=== PATIENT | male | born 1950 | race Caucasian/White ===

== ENCOUNTER → 2018-06-14 | Day surgery (SDC) | payer MEDICARE, OTHER ==
[2018-06-12 14:34] LABS: BASOPHILS % 0.4 % (0.0-1.0); EOSINOPHILS # (AUTO) 0.3 (0.0-0.4); EOSINOPHILS % 4.4 % (0.0-6.0); HEMATOCRIT 36.5 % (38.2-49.6); LYMPHOCYTES # (AUTO) 1.8 (1.0-3.2); LYMPHOCYTES % 25.9 % (18.0-39.1); MEAN CORPUSCULAR HEMOGLOBIN 30.8 pg (28-32); MEAN CORPUSCULAR HGB CONC 32.9 g/dL (31-35); MEAN CORPUSCULAR VOLUME 93.8 fL (81-99); MONOCYTES # (AUTO) 0.8 (0.2-0.8); MONOCYTES % 11.1 % (4.4-11.3); NEUTROPHILS % 57.9 % (38.7-80.0); PLATELET COUNT 205 x10e3/uL (140-360); RED BLOOD COUNT 3.89 x10e6/uL (4.3-5.7); RED CELL DISTRIBUTION WIDTH 13.3 % (11.7-14.4)
[~2018-06-14] MED LIST: ALLOPURINOL300 MG PO; COMBIVENT RESPIM4 GM IH; CYMBALTA60 MG PO; FENTANYL CITRATE/PF 100MCG/2 ML INJ ONE; FERROUS SULFAT325 MG PO; FLOMAX0.4 MG PO; FLOVENT HFA12 G1 INH; HYOSCYAMINE SULFATE 0.5 MG/ML INJ ONE; ISOSORBIDE DINIT5 MG PO; LASIX40 MG PO; LIDOCAINE HCL 2% LOCAL INJ 5 ML SDV VIAL INJ ONE; LORATADINE10 MG PO; MIDAZOLAM HCL 2 MG/2 ML VIAL ONE; MOVANTIK PO; NORCO 10-325 T1 EACH PO; OMEPRAZOLE40 MG PO; PROPOFOL IV EMULSION 10 MG/ML 50 ML VIAL ONE; SEREVENT DISKU50 MCG INH; SPIRIVA18 MCG INH; TRIAMCINOLONE A15 G1 TOP; VYTORIN 10-201 EACH PO; ZESTRIL20 MG PO
[2018-06-14 15:25] VITALS: BP 140/77
--- NOTE | 2018-06-14 20:57 | Operative Report ---
DATE OF PROCEDURE: 06/14/2018 SURGEON: Austen Cortez MD PROCEDURES: Colonoscopy and polypectomy. INDICATIONS FOR PROCEDURE: Surveillance colonoscopy, personal history of colon cancer. MEDICATIONS: The patient was done under MAC, please see anesthesiologist's note. PROCEDURE IN DETAIL: With the patient in left lateral decubitus position, flexible fiberoptic Olympus colonoscope was inserted into the rectum with ease and advanced all the way to the cecum. Prep overall was poor with large amount of retained fecal material. The scope was then withdrawn slowly and whatever was visualized, the mucosa overlying the cecum and the ascending colon grossly appeared to be within normal limits. One polyp was hot biopsied from the transverse colon. Minimal mucosa that was visualized of the descending and sigmoid grossly appeared to be within normal limits. The scope was then retroflexed into the distal rectum and small internal hemorrhoids were noted, none of which was actively bleeding. The scope was then straightened out, it was subsequently withdrawn. The patient tolerated the procedure well. IMPRESSION: 1. Poor prep. 2. Transverse colon polyp, hot biopsied. 3. Internal hemorrhoids, none actively bleeding. PLAN: Follow up histology. The patient will need a repeat colonoscopy after a better prep. Austen Cortez MD [facility]/[place] /[id number] cc: Cong Junior MD
== END | disposition home or self-care (01) ==
LOC: OR 09:35
PROVIDERS: ATTEND Internal Medicine Gastroenterology
DX: Z08 Encounter for follow-up examination after completed treatment for malignant neoplasm (principal); D12.3 Benign neoplasm of transverse colon; Z85.038 Personal history of other malignant neoplasm of large intestine; K59.00 Constipation, unspecified; K64.8 Other hemorrhoids; K21.9 Gastro-esophageal reflux disease without esophagitis; K46.9 Unspecified abdominal hernia without obstruction or gangrene; I10 Essential (primary) hypertension; K44.0 Diaphragmatic hernia with obstruction, without gangrene; G47.33 Obstructive sleep apnea (adult) (pediatric); J44.9 Chronic obstructive pulmonary disease, unspecified; D64.9 Anemia, unspecified; Z01.810 Encounter for preprocedural cardiovascular examination; Z01.812 Encounter for preprocedural laboratory examination; Z68.41 Body mass index [BMI] 40.0-44.9, adult; Z85.46 Personal history of malignant neoplasm of prostate
CPT/HCPCS: 36415; 45384; 85025; 93005; J1980; J2001; J2250; J2704

== ENCOUNTER → 2018-06-18 | Day surgery (SDC) | payer OTHER ==
[~2018-06-18] MED LIST changes: +GLUCAGON FOR INJ 1 MG VIAL ONE; -HYOSCYAMINE SULFATE 0.5 MG/ML INJ ONE; +PROPOFOL IV EMULSION 10 MG/ML 20 ML VIAL ONE; -PROPOFOL IV EMULSION 10 MG/ML 50 ML VIAL ONE
[2018-06-18 17:00] VITALS: BP 130/79
--- NOTE | 2018-06-18 22:38 | Operative Report ---
DATE OF PROCEDURE: 06/18/2018 SURGEON: Austen Cortez MD PROCEDURES: Colonoscopy and polypectomy. INDICATIONS FOR COLONOSCOPY: Surveillance colonoscopy, personal history of colon cancer, suboptimal prep on previous colonoscopy. MEDICATIONS: The patient was done under MAC, please see anesthesiologist's note. PROCEDURE IN DETAIL: With the patient in left lateral decubitus position, a flexible fiberoptic Olympus colonoscope was inserted into the rectum with ease and advanced all the way to the cecum. The scope was then withdrawn slowly. Mucosa overlying the cecum and ascending colon appeared to be within normal limits. One polyp was hot biopsied from the transverse colon. The rest of the transverse, descending, and sigmoid appeared to be within normal limits. The rectum was also within normal limits. The scope was then retroflexed into the distal rectum and small internal hemorrhoids were noted, none of which was actively bleeding. The scope was then straightened out, it was subsequently withdrawn. The patient tolerated the procedure well. IMPRESSION: 1. Transverse colon polyp, hot biopsied. 2. Internal hemorrhoids, none actively bleeding. PLAN: Follow up histology. Initiate high-fiber, low-fat diet. Initiate high-fiber supplement. The patient might benefit from a followup colonoscopy in 1-2 years. Austen Cortez MD [facility] [place] /[id number] cc: Cong Junior MD
== END | disposition home or self-care (01) ==
LOC: OR 11:46
PROVIDERS: ATTEND Internal Medicine Gastroenterology
DX: Z08 Encounter for follow-up examination after completed treatment for malignant neoplasm (principal); Z85.038 Personal history of other malignant neoplasm of large intestine; K63.5 Polyp of colon; K64.8 Other hemorrhoids; K21.9 Gastro-esophageal reflux disease without esophagitis; K44.9 Diaphragmatic hernia without obstruction or gangrene; K46.9 Unspecified abdominal hernia without obstruction or gangrene; I10 Essential (primary) hypertension; J44.9 Chronic obstructive pulmonary disease, unspecified; D64.9 Anemia, unspecified; G47.33 Obstructive sleep apnea (adult) (pediatric); E66.01 Morbid (severe) obesity due to excess calories; M10.9 Gout, unspecified; I45.10 Unspecified right bundle-branch block; F41.9 Anxiety disorder, unspecified; F32.9 Major depressive disorder, single episode, unspecified; Z68.41 Body mass index [BMI] 40.0-44.9, adult; Z85.46 Personal history of malignant neoplasm of prostate
CPT/HCPCS: 45384; 93005; J1610; J2001; J2250; J2704